=== PATIENT | male | born 1950 | race Caucasian/White ===

== ENCOUNTER 2018-07-31 06:29 | Inpatient (IN) ==
[2018-07-31] MEDS ORDERED: methylPREDNISolone 125 MG/2 ML VIAL IVP ONE (06:43)
[2018-07-31] MEDS ORDERED: Ipratropium/Albuterol Neb 3 ML IH ONE (06:43)
[2018-07-31] MEDS ORDERED: 0.9 % Sodium Chloride 1,000 ML IVC SCH ×2 (06:45→08:18)
--- NOTE | 2018-07-31 06:54 | Emergency Department Note ---
Disposition Clinical Impression: Community acquired pneumonia Disposition: Admitted As Inpatient Condition: Good Referrals: NONE,PCP [Primary Care Provider] - SOB HPI - General Chief Complaint: ED Shortness of Breath/Dyspnea Stated Complaint: sob, low 02 sat Time Seen by Provider: 07/31/18 06:30 Source: patient Mode of arrival: ambulatory Limitations: no limitations Nursing Notes Reviewed: Yes Vital Signs Reviewed: Yes - History of Present Illness Patient complains of shaking, cough and shortness of breath at all started about the same time this morning. He denies any chest pain says she has had a fever but he does not know how high it has been - Related Data Home Medications Medication Instructions Recorded Confirmed Budesonide/Formoterol 160/4.5 2 puff IH BIDR 07/31/18 07/31/18 [Symbicort 160/4.5] Ipratropium/Albuterol Neb [Duoneb] 3 ml IH Q6HR PRN 07/31/18 07/31/18 Losartan Potassium 25 mg PO DAILY 07/31/18 07/31/18 Montelukast [Singulair] 10 mg PO HS 07/31/18 07/31/18 Allergies Allergy/AdvReac Type Severity Reaction Status Date / Time No Known Allergies Allergy Verified 07/31/18 06:31 All systems ED: reviewed and negative except as stated. Review of Systems: As Per HPI Constitutional: Denies: fever, chills, weakness, weight change Eyes: Denies: eye pain, eye discharge, vision change ENT ED: Denies: ear pain, throat pain, dental pain, hearing loss, epistaxis, con gestion, dysphagia Cardiovascular: Denies: chest pain, palpitations, dyspnea on exertion, edema, syncope Respiratory: Reports: as per HPI, cough, dyspnea, other (Rigors) Gastrointestinal: Denies: abdominal pain, nausea, vomiting, diarrhea, constipation, hematemesis, melena, hematochezia Genitourinary: Denies: urgency, dysuria, frequency, hematuria Musculoskeletal: Denies: back pain, neck pain, arthralgia, myalgia Integumentary: Denies: rash, abrasion, lesions Neurological: Denies: headache, weakness, numbness, paresthesias, confusion, abnormal gait, vertigo Psychiatric: Denies: anxiety, depression, suicidal thoughts, homicidal thoughts, auditory hallucinations, visual hallucinations Endocrine: Denies: fatigue Hematological/Lymphatic: Denies: easy bleeding, easy bruising Allergic/Immunologic: Denies: facial swelling, urticaria Past Medical History - Past Medical History Attestation: Yes The following information was validated with the patient. Source: patient, nursing notes reviewed Medical history: Reports: COPD, CVA, hyperlipidemia, hypertension, kidney stones, other (AAA borderline size at 3cm per pt) Surgical history: Reports: herniorrhaphy Psychiatric history: Reports: no psych history - Social History Smoking Status: Current every day smoker Smokeless Tobacco Status: No Alcohol use: Reports: none Drug use: Reports: none Physical Exam - General Limitations: no limitations General appearance: alert, in no apparent distress - Head Head exam: atraumatic, normocephalic, normal inspection - Eye Eye exam: Present: normal appearance, PERRL, EOMI - ENT ENT exam: normal exam, normal oropharynx, mucous membranes moist - Neck Neck exam: Present: normal inspection, full ROM, trachea midline - Chest Chest inspection: Present: normal inspection, symmetric chest wall rise - Respiratory Respiratory exam: Present: respiratory distress, wheezes, prolonged expiratory phase. Absent: accessory muscle use - Cardiovascular Cardiovascular exam: Present: normal rhythm, tachycardia, normal heart sounds - Abdominal Exam Abdominal exam: Present: soft, Non-Tender, normal bowel sounds - Extremities Exam Extremities exam: Present: normal inspection, full ROM. Absent: tenderness, pedal edema - Back Exam Back exam: Present: normal inspection, full ROM. Absent: tenderness - Neurological Exam Neurological exam: Present: alert, oriented X3 - Psychiatric Psychiatric exam: Present: normal affect, normal mood - Skin Skin exam: Present: warm, dry, intact, normal color Shortness of Breath/Dyspnea - [facility] Narrative Medical decision making narrative: I reviewed the patient's medication list Patient's case was discussed with Dr. Pierre who has graciously accepted admission - Differential Diagnosis Likely: acute exacerbation of chronic obstructive airways disease, congestive heart failure, pneumonia - Lab Data Lab results reviewed: Yes I reviewed the patient's lab results. - Radiology Data Radiology results reviewed: Yes I reviewed the patient's radiology results. - EKG Data EKG attestation: Yes I reviewed and interpreted this EKG. EKG results narrative: EKG shows sinus tachycardia 318 bpm [place] interval 136 ms QRS duration 129 ms QT interval 332 QTC 466 ms R axis 146 degrees
[2018-07-31 07:14] LABS: ABG Base Excess 2 mEq/L (-2 to 3); ABG HCO3 26 mEq/L (21-27); ABG Oxygen Saturation 88 % (95-98); ABG PCO2 39 mmHg (35-45); ABG PH 7.43 pH Units (7.32-7.45); ABG PO2 54 mmHg (85-104); ABG TCO2 27 mEq/L (20-26)
[2018-07-31 07:29] LABS: Basophils # 0.1 K/mcL (0.0-0.2); Basophils % 0.5 %; Eosinophils # 0.1 K/mcL (0.0-0.6); Eosinophils % 0.5 %; Hemoglobin 16.9 g/dL (12.9-16.9); Immature Granulocytes % 0.4 % (0-4); Lymphocytes # 0.7 K/mcL (0.6-4.6); Lymphocytes % 3.3 %; Mean Corpuscular HGB Conc 32.5 g/dL (31.6-35.5); Mean Corpuscular Hemoglobin 30.3 pg (28.0-33.3); Mean Corpuscular Volume 93.4 fL (83.0-100.0); Monocytes # 1.1 K/mcL (0.0-1.3); Monocytes % 5.6 %; Neutrophils # 17.9 K/mcL (1.6-8.9); Platelet Count 244 K/mcL (140-400); Red Blood Count 5.57 M/mcL (4.19-5.50); Red Cell Distribution Width 13.7 % (11.5-14.5); Segmented Neutrophils % 89.7 %
[2018-07-31] MEDS ORDERED: Azithromycin 250 MG TABLET PO ONE (07:45)
[2018-07-31] MEDS ORDERED: cefTRIAXone 2,000 MG in 0.9 % Sodium Chloride Mini Bag 100 ML IVPB ONE (07:45)
[2018-07-31 07:48] LABS: Alanine Aminotransferase 5 Units/L (7-52); Albumin 3.9 g/dL (3.5-5.7); Albumin/Globulin Ratio 1.3 (1.1-2.2); Alkaline Phosphatase 80 Units/L (34-104); Aspartate Amino Transferase 9 Units/L (13-39); BUN/Creatinine Ratio 16 (6-26); Bilirubin,Total 0.4 mg/dL (0.3-1.0); Blood Urea Nitrogen 14 mg/dL (8-23); Calcium 9.3 mg/dL (8.6-10.3); Carbon Dioxide 26 mEq/L (23-29); Chloride 103 mEq/L (98-107); Glucose 115 mg/dL (70-105); Osmolality,Calculated 291 (280-300); Potassium 3.7 mEq/L (3.5-5.1); Sodium 140 mEq/L (136-145); Total Protein 6.9 g/dL (6.4-8.9); Troponin I < 0.03 ng/mL (< 0.04); eGFR For Non-African Americans > 60 (> 60)
[2018-07-31] MEDS ORDERED: Ipratropium/Albuterol Neb 3 ML IH SCH (08:00)
[2018-07-31] MEDS ORDERED: Naloxone 0.4 MG/ML INJ IVP PRN (08:18)
[2018-07-31] MEDS: Budesonide/Formoterol 160/4.5 1 PUFF INH IH SCH ×2 (09:33→23:02)
[2018-07-31] MEDS: Ipratropium/Albuterol Neb 3 ML IH SCH ×4 (11:09→23:02)
--- NOTE | 2018-07-31 14:55 | Internal Med History&Physical ---
Date of Encounter: 07/31/18 Time of Encounter: 14:25 Assessment and Plan (1) Community acquired pneumonia Current visit: Yes Status: Acute He was given Rocephin and Zithromax in emergency room. These will be continued with lactobacillus. Qualifiers: Laterality: left Lung location: lower lobe of lung Qualified Code(s): J18.1 - Lobar pneumonia, unspecified organism (2) Acute exacerbation of chronic obstructive airways disease Current visit: No Status: Acute Continue antibiotics, Singulair, Symbicort, and duo nebs. Room air oximetry will be checked prior on 6 minute walk prior to discharge. (3) Hypertension Current visit: Yes Status: Chronic Continue Cozaar Qualifiers: Hypertension type: essential hypertension Qualified Code(s): I10 - Essential (primary) hypertension Internal Medicine - H&P: HPI Chief complaint: Dyspnea Admitted From: Emergency Dept Plans for Post Hospital Care: Home History of present illness: Mr. Alanis is a 68 year old male who came to emergency room stating he awakened at approximately 0300 with worsening dyspnea. He reports a cough was present with no productivity. He had sensation of fevers and chills. He denies vomiting diarrhea or pain. He was evaluated in emergency room and was felt to have left lung pneumonia. [facility] care [facility]. Respiratory history is significant for having smoked since age 19 up to 1 pack per day. He claims he had PFTs approximately 2012 which showed COPD/emphysema. He does not wear home oxygen. He denies testing for JAYCEE. Past Med Surg Social Fam HX - Past Medical History Medical history: aortic aneurysm, COPD, CVA, hyperlipidemia, hypertension, kidney stones, other Additional medical history: Aneurism Psychiatric history: no psych history - Past Surgical History Surgical History: herniorrhaphy Additional surgical history: Cancer removed from nose - Social History Smoking Status: Current every day smoker Packs per day: 1.5 Smokeless Tobacco Status: No Alcohol use: none Drug use: none - Family History Mother Hx Family Respiratory Disorders: Yes Father Hx Family Cardiac Disorders: Yes Hx Family Respiratory Disorders: Yes Internal Medicine - H&P: Meds Budesonide/Formoterol 160/4.5 [Symbicort 160/4.5] 2 puff IH BIDR 07/31/18 [History] Ipratropium/Albuterol Neb [Duoneb] 3 ml IH Q6HR PRN 07/31/18 [History] Losartan Potassium 25 mg PO DAILY 07/31/18 [History] Montelukast [Singulair] 10 mg PO HS 07/31/18 [History] Allergy/AdvReac Type Severity Reaction Status Date / Time No Known Allergies Allergy Verified 07/31/18 06:31 All Systems PM: A 10-system review of systems was performed and is negative for pertinent findings except as documented above in the HPI. Review of systems: Review of systems from his February 2016 [facility] hospitalization were reviewed and revised as below. Gen.: His weight has been stable at approximately 69 kg since February 2016 visit. Cardiovascular: He has a history of hypertension but denies heart failure DVT or pulmonary embolus. He claims he has an "aneurysm" but does not know details. He thinks he was told he had an NH in the past but does not know details. He claims an exercise stress test in approximately 2008 was unremarkable. He denies having a heart cath Respiratory: As per history of present illness GI: Denies disorders of his liver gallbladder or exocrine pancreas. He claims he had colonoscopy in 2013 which was unremarkable : He denies hematuria or dysuria. He claims he has a kidney stone that is asymptomatic Neurologic: He is uncertain if he has had CVA in the past. He states he has occasional episode of vision fluctuating. He denies seizures Endocrine: He has hyperlipidemia but does not take medication. He denies diabetes or thyroid disease Hematology/oncology: History of skin cancer removed from his nose. He denies internal malignancies or anemia Psychiatric: He denies anxiety depression or other mental health issues Musk skeletal: Denies arthritis gout or other bone joint or muscle disorders. - Constitutional Vitals: Temp Pulse Resp BP Pulse Ox 99 F 73 15 101/54 90 07/31/18 12:38 07/31/18 12:38 07/31/18 12:38 07/31/18 12:38 07/31/18 12:38 Exam: Gen.: He is a well-developed well-nourished male lying in bed who appears in no acute distress HEENT: Head is atraumatic and normocephalic. Eyes: EOMI. There is no scleral icterus. Mouth: Mucosa is moist. Neck: Supple and nontender. There is no thyromegaly or adenopathy noted. Heart: Regular without murmurs gallops or ectopics. Tones are soft. Lungs: No wheezes or crackles are heard. He has diminished breath sounds diffusely. Abdomen: Soft and nontender. No masses or guarding are noted. Extremities: There is no cyanosis edema or clubbing noted. Dorsalis pedis and posterior tibial pulses are trace to 1+ palpable bilaterally. Neurologic: Mental status: He is talkative and a good historian. Cranial nerves: Smile is symmetric. Forehead wrinkles bilaterally. Tongue protrudes midline. EOMI. Motor: There is no pronator drift. Cerebellar: Finger to nose is intact bilaterally. Skin: Warm and dry Internal Med - H&P Results - Labs CBC & Chem 7: 07/31/18 07:10 07/31/18 07:10 Labs: Short CBC 07/31/18 Range/Units 07:10 WBC 19.9 H (4.3-11.1) K/mcL Hgb 16.9 (12.9-16.9) g/dL Hct 52.0 H (37.5-50.1) % Plt Count 244 (140-400) K/mcL Neutrophils # 17.9 H (1.6-8.9) K/mcL BMP 07/31/18 07:10 Sodium 140 Potassium 3.7 Chloride 103 Carbon Dioxide 26 BUN 14 Creatinine 0.89 Glucose 115 H Calcium 9.3 Cardiac Enzymes 07/31/18 Range/Units 07:10 Troponin I < 0.03 (< 0.04) ng/mL Liver Function 07/31/18 Range/Units 07:10 Total Bilirubin 0.4 (0.3-1.0) mg/dL AST 9 L (13-39) Units/L ALT 5 L (7-52) Units/L Alkaline Phosphatase 80 (34-104) Units/L Albumin 3.9 (3.5-5.7) g/dL - ABG Interpretation ABG results: 07/31/18 07:11 ABG pH 7.43 ABG pCO2 39 ABG pO2 54 L ABG HCO3 26 ABG Total CO2 27 H ABG O2 Saturation 88 L ABG Base Excess 2 - Impressions ITS Impressions Chest X-Ray 07/31/18 06:43 IMPRESSION: 1. COPD. 2. Mild asymmetric patchy lung base opacities more prominent the left which may represent developing pneumonia versus possible atelectasis. No lobar pneumonia present. D/ / 07/31/2018 07:32:27 Romel Jennings MD / jessica Interpreting Provider: Romel Jennings MD
--- NOTE | 2018-07-31 18:24 | Electrocardiograph Report ---
[place] [id number] Test Date: 2018-07-31 Pat Name: Omar Alanis Department: EDP-14 Room: [facility] Gender: M Plater Production: : 1950 Requested By: Serge Call Order Number: [id number] Reading MD: Amy Serrano Measurements Intervals [place] Rate: 118 P: 103 VT: 136 QRS: 146 QRSD: 129 T: 59 QT: 332 QTc: 466 Interpretive Statements Sinus tachycardia RBBB and LPFB Electronically Signed On 07-31-2018 18:22:49 EST by Amy Serrano
[2018-07-31] MEDS: Lactobacillus 1 EACH CAP.SPRINK PO SCH (19:51)
[2018-07-31] MEDS: methylPREDNISolone 125 MG/2 ML VIAL IVP SCH (19:51)
[2018-08-01] MEDS: Ipratropium/Albuterol Neb 3 ML IH SCH ×5 (04:34→20:07)
[2018-08-01 05:49] LABS: Hematocrit 41.9 % (37.5-50.1); Hemoglobin 13.6 g/dL (12.9-16.9); Mean Corpuscular HGB Conc 32.5 g/dL (31.6-35.5); Mean Corpuscular Hemoglobin 30.8 pg (28.0-33.3); Mean Platelet Volume 10.9 fL (9.4-12.4); Platelet Count 224 K/mcL (140-400); Red Blood Count 4.41 M/mcL (4.19-5.50); Red Cell Distribution Width 13.8 % (11.5-14.5)
[2018-08-01] MEDS: methylPREDNISolone 125 MG/2 ML VIAL IVP SCH (06:09)
[2018-08-01 06:39] LABS: Lymphocytes # 0.7 K/mcL (0.6-4.6); Monocytes # 0.7 K/mcL (0.0-1.3)
[2018-08-01 06:40] LABS: Neutrophils # 31.6 K/mcL (1.6-8.9)
[2018-08-01 06:41] LABS: Platelet Estimate Normal (Normal); Toxic Granulation Present (Not Present)
[2018-08-01] MEDS: Budesonide/Formoterol 160/4.5 1 PUFF INH IH SCH ×2 (08:00→20:07)
[2018-08-01] MEDS: Azithromycin 500 MG in D5% in Water 250 ML IVPB SCH (08:22)
[2018-08-01] MEDS: Lactobacillus 1 EACH CAP.SPRINK PO SCH ×2 (08:22→20:19)
[2018-08-01] MEDS: cefTRIAXone 1,000 MG in Water for inj. (sterile) 20 ML 10 ML IVP SCH (08:29)
--- NOTE | 2018-08-01 10:47 | Internal Med Progress Note ---
Date of Encounter: 08/01/18 Time of Encounter: 10:25 - Assessment and plan (1) Community acquired pneumonia Current Visit: Yes Status: Acute Assessment and plan: August 01. Continue Rocephin and Zithromax with lactobacillus. CT of chest will be done since WBC has risen further with worsening left shift. Qualifiers: Laterality: left Lung location: lower lobe of lung Qualified Code(s): J18.1 - Lobar pneumonia, unspecified organism (2) Acute exacerbation of chronic obstructive airways disease Current Visit: No Status: Acute Assessment and plan: August 01. As above (3) Hypertension Current Visit: Yes Status: Chronic Assessment and plan: August 01. Continue Cozaar Qualifiers: Hypertension type: essential hypertension Qualified Code(s): I10 - Essential (primary) hypertension - Subjective Interval history: August 01. He has no new complaints. - Constitutional Vitals: Temp Pulse Resp BP Pulse Ox 98.1 F 72 18 97/38 97 08/01/18 07:09 08/01/18 07:09 08/01/18 08:00 08/01/18 07:09 08/01/18 08:35 Exam: He is sitting on the side of bed and appears in no significant distress. His lungs show diminished breath sounds diffusely. No egophony is heard. Heart is regular without murmurs gallops or ectopics. I reviewed his medications and lab results. Internal Medicine: Result - Labs CBC & Chem 7: 08/01/18 05:22 07/31/18 07:10 Labs: Short CBC 08/01/18 Range/Units 05:22 WBC 33.3 H* D (4.3-11.1) K/mcL Hgb 13.6 D (12.9-16.9) g/dL Hct 41.9 (37.5-50.1) % Plt Count 224 (140-400) K/mcL Neutrophils # 31.6 H (1.6-8.9) K/mcL - ABG Interpretation ABG results: ABG ABG pH 7.43 pH Units (7.32-7.45) 07/31/18 07:11 ABG pCO2 39 mmHg (35-45) 07/31/18 07:11 ABG pO2 54 mmHg (85-104) L 07/31/18 07:11 ABG O2 Saturation 88 % (95-98) L 07/31/18 07:11 - Impressions Impressions Chest X-Ray 07/31/18 06:43 IMPRESSION: 1. COPD. 2. Mild asymmetric patchy lung base opacities more prominent the left which may represent developing pneumonia versus possible atelectasis. No lobar pneumonia present. D/ / 07/31/2018 07:32:27 Romel Jennings MD / jessica Interpreting Provider: Romel Jennings MD Consult Discharge Plan - Plan Referrals: NONE,PCP [Primary Care Provider] - 1 week
[2018-08-01] MEDS: Nicotine 21 MG PATCH.TD24 TD SCH (11:22)
[2018-08-01] MEDS: predniSONE 20 MG TABLET PO SCH (17:33)
[2018-08-02] MEDS: Ipratropium/Albuterol Neb 3 ML IH SCH ×3 (00:58→09:21)
[2018-08-02] MEDS ORDERED: Acetaminophen 325 MG TABLET PO PRN (01:07)
[2018-08-02 07:05] LABS: Hematocrit 43.2 % (37.5-50.1); Hemoglobin 13.7 g/dL (12.9-16.9); Mean Corpuscular HGB Conc 31.7 g/dL (31.6-35.5); Mean Corpuscular Hemoglobin 30.2 pg (28.0-33.3); Mean Corpuscular Volume 95.4 fL (83.0-100.0); Mean Platelet Volume 11.5 fL (9.4-12.4); Platelet Count 242 K/mcL (140-400); Red Blood Count 4.53 M/mcL (4.19-5.50); Red Cell Distribution Width 14.3 % (11.5-14.5)
[2018-08-02 07:39] LABS: Lymphocytes # 1.9 K/mcL (0.6-4.6); Monocytes # 0.6 K/mcL (0.0-1.3); Neutrophils # 28.4 K/mcL (1.6-8.9); Platelet Estimate Normal (Normal); Toxic Granulation Present (Not Present)
[2018-08-02] MEDS: Lactobacillus 1 EACH CAP.SPRINK PO SCH (07:45)
[2018-08-02] MEDS: predniSONE 20 MG TABLET PO SCH (07:45)
[2018-08-02] MEDS: Azithromycin 500 MG in D5% in Water 250 ML IVPB SCH (07:46)
[2018-08-02] MEDS: cefTRIAXone 1,000 MG in Water for inj. (sterile) 20 ML 10 ML IVP SCH (07:46)
[2018-08-02] MEDS: Nicotine 21 MG PATCH.TD24 TD SCH (07:53)
[2018-08-02 08:23] VITALS: BP 137/54
[2018-08-02] MEDS: Budesonide/Formoterol 160/4.5 1 PUFF INH IH SCH (09:27)
--- NOTE | 2018-08-02 10:10 | Discharge Summary ---
Orders not resulted at time of discharge: Pending orders 07/31/18 07:10 Culture,Blood [BC] Stat Date of Encounter: 08/02/18 Time of Encounter: 10:00 - Discharge Diagnosis (1) Community acquired pneumonia Priority: Primary Status: Acute Qualifiers: Laterality: left Lung location: lower lobe of lung Qualified Code(s): J18.1 - Lobar pneumonia, unspecified organism (2) Acute exacerbation of chronic obstructive airways disease Priority: Secondary Status: Acute (3) Hypertension Priority: Secondary Status: Chronic Qualifiers: Hypertension type: essential hypertension Qualified Code(s): I10 - Essential (primary) hypertension Hospital course: Mr. Alanis is a 68 year old male who came to emergency room stating he awakened at approximately 0300 with worsening dyspnea. He reports a cough was present with no productivity. He had sensation of fevers and chills. He denies vomiting diarrhea or pain. He was evaluated in emergency room and was felt to have left lung pneumonia. He was admitted to [facility] floor for ongoing care needs. Initial orders were written by the emergency room physician. I saw him on July 31 and performed the history and physical. He was started on Rocephin and Zithromax in emergency room for possible pneumonia. Lactobacillus and steroids were also given. WBC blake to 33.3 K on August 01. Chest CT was done to further evaluate. No worrisome pathology suggesting malignancy was seen. There was no obvious infiltrate. Solu-Medrol was changed oral prednisone and WBC decreased slightly to 31.6 on August 02 with decrease in bandemia. He remained afebrile the last 24 hours of hospitalization. He will continue with antibiotic and probiotic for 2 additional days at discharge. Final report of blood cultures is pending at time of discharge but no growth reported to date. Influenza testing in ER was negative. On August 02 he felt improved and stable for discharge home which I felt was reasonable. He will follow with his PCP Sosa Ortega CNP within 1 week. Room air oximetry will be checked on 6 minute walk prior to discharge. - Time Spent with Patient Total time spent providing and/or coordinating discharge services: - Discharge Medications Prescriptions: Cefuroxime PO [Ceftin] 500 mg PO Q12HR #4 tablet Azithromycin [Zithromax] 250 mg PO DAILY #2 tablet Lactobacillus [Culturelle] 1 each PO BID #4 cap.sprink predniSONE [PredniSONE] 10 mg PO BIDWM #4 tablet Home Medications: Budesonide/Formoterol 160/4.5 [Symbicort 160/4.5] 2 puff IH BIDR 07/31/18 [History] Ipratropium/Albuterol Neb [Duoneb] 3 ml IH Q6HR PRN 07/31/18 [History] Losartan Potassium 25 mg PO DAILY 07/31/18 [History] Montelukast [Singulair] 10 mg PO HS 07/31/18 [History] Azithromycin [Zithromax] 250 mg PO DAILY #2 tablet 08/02/18 [Rx] Cefuroxime PO [Ceftin] 500 mg PO Q12HR #4 tablet 08/02/18 [Rx] Lactobacillus [Culturelle] 1 each PO BID #4 cap.sprink 08/02/18 [Rx] predniSONE [PredniSONE] 10 mg PO BIDWM #4 tablet 08/02/18 [Rx] Allergies/Adverse Reactions: Allergy/AdvReac Type Severity Reaction Status Date / Time No Known Allergies Allergy Verified 07/31/18 06:31 Date of admission: 08/01/18 10:42 Primary care physician: Sosa Ortega [employer] Consults: 07/31/18 10:07 Consult to Counter Tacker [CONS] Routine Reason for SW Consult: may possibly need home o2 - Constitutional Vitals: Temp Pulse Resp BP Pulse Ox 97.7 F 75 18 137/54 94 08/02/18 08:20 08/02/18 08:20 08/02/18 09:21 08/02/18 08:20 08/02/18 09:21 - Patient Status Disposition: Home, Self-Care Condition: Good - Discharge Instructions Follow Up With: NONE,PCP [Primary Care Provider] - 1 week - Diet and Activity Activity: resume usual activities as tolerated Diet: advance to your usual diet
== END 2018-08-02 12:52 | disposition home or self-care (01) | DRG 194 ==
LOC: INPPIK 06:29 → EMEROOPIK 06:29 → INPPIK 08:37
PROVIDERS: ADMIT Internal Medicine; ATTEND Internal Medicine